=== PATIENT | male | born 1995 | race Two or more races ===

== ENCOUNTER 2020-12-08 08:44 | Outpatient (CLI) | payer OTHER | END 2020-12-08 08:50 | disposition home or self-care (01) | LOC: RAD 08:44 | DX: S62.330D Displaced fracture of neck of second metacarpal bone, right hand, subsequent encounter for fracture with routine healing (principal) ==

== ENCOUNTER 2022-02-05 10:14 | Emergency (ER) | payer OTHER ==
[~2022-02-05] VITALS: Ht 175.3 cm; Wt 72.6 kg
== END 2022-02-05 13:18 | disposition home or self-care (01) ==
LOC: ER 10:14
DX: J03.90 Acute tonsillitis, unspecified (principal)